=== PATIENT | male | born 1970 | race Caucasian/White ===

== ENCOUNTER 2017-05-06 20:23 | Emergency (ER) | payer OTHER ==
[~2017-05-06] VITALS: Ht 162.6 cm; Wt 87.3 kg
[~2017-05-06 20:23] MED LIST: NAPROSYN500 MG PO
[2017-05-06] MEDS ORDERED: MOTRIN800 MG PO (22:59)
[2017-05-06 23:37] VITALS: BP 143/89
== END 2017-05-06 23:38 | disposition home or self-care (01) ==
LOC: EME 20:23
DX: M25.561 Pain in right knee (principal); M25.562 Pain in left knee; G89.29 Other chronic pain
CPT/HCPCS: 99281; 99283; J1885

== ENCOUNTER 2017-10-05 21:21 | Emergency (ER) | payer SELFPAY ==
[~2017-10-05] VITALS: Ht 162.6 cm; Wt 88.4 kg
[~2017-10-05 21:21] MED LIST changes: +MOTRIN800 MG PO
[2017-10-05] MEDS ORDERED: ULTRAM50 MG PO (22:49)
[2017-10-05 23:16] VITALS: BP 130/84
== END 2017-10-05 23:16 | disposition home or self-care (01) ==
LOC: RME 21:21 → EME 21:21 → RME 23:16
PROC: 0HBRXZZ Excision of Toe Nail, External Approach (ICD-10-PCS; principal; 2017-10-05)
DX: L03.032 Cellulitis of left toe (principal); L60.0 Ingrowing nail
CPT/HCPCS: 99281; 99284; S0020